=== PATIENT | female | born 1950 | race Caucasian/White ===

== ENCOUNTER → 2021-01-27 | Day surgery (SDC) | payer MEDICARE, OTHER ==
[~2021-01-27] MED LIST: ALLEGRA ALLERG180 M1 PO; COQ-10100 MG PO; COREG12.5 MG PO; KRILL OIL 3501 EACH PO; LIPITOR20 MG PO; PRINIVIL10 MG PO; TORSEMIDE10 MG PO; VIT D3 PO; [UNRECOGNIZED DRUG - OTHER] PO
[2021-01-27 10:55] LABS: HCT 38.9 % (37.0-47.0); HGB 12.4 g/dl (12.5-16.0); MCH 30.8 pg (25.0-31.0); MCHC 31.9 g/dL (32.0-36.0); MCV 96.5 fL (78.0-100.0); MPV 9.7 fL (6.0-9.5); RBC 4.03 M/uL (4.20-5.40); RDW 12.1 % (11.5-14.0); WBC 6.8 K/uL (4.0-10.5)
[2021-01-27 10:56] LABS: BILIRUBIN NEGATIVE (NEGATIVE); BLOOD NEGATIVE Ery/uL (NEGATIVE); CLARITY CLEAR (CLEAR); COLOR YELLOW (YELLOW); GLUCOSE (U) NORMAL (NORMAL); LEUKOCYTES NEGATIVE Leu/uL (NEGATIVE); NITRITE NEGATIVE (NEGATIVE); PROTEIN NEGATIVE (NEGATIVE); SPECIFIC GRAVITY 1.015 (1.001-1.030); UROBILINOGEN 0.2 mg/dL (0.2-1.0); pH 7.5 (5.0-9.0)
[2021-01-27 11:08] LABS: BUN/CREAT RATIO (CALC) 17.7 RATIO; CREATININE 0.79 mg/dL (0.51-0.95); POTASSIUM 4.3 mmol/L (3.5-5.1)
== END | disposition home or self-care (01) ==
LOC: FAS 09:40
PROVIDERS: Legal Medicine
DX: S52.572A Other intraarticular fracture of lower end of left radius, initial encounter for closed fracture (principal); I48.91 Unspecified atrial fibrillation; I10 Essential (primary) hypertension; E78.00 Pure hypercholesterolemia, unspecified; K21.9 Gastro-esophageal reflux disease without esophagitis; E78.5 Hyperlipidemia, unspecified; I42.9 Cardiomyopathy, unspecified; W19.XXXA Unspecified fall, initial encounter; Z88.0 Allergy status to penicillin; Z88.1 Allergy status to other antibiotic agents; Z88.2 Allergy status to sulfonamides
CPT/HCPCS: 36415; 71045; 73100; 80048; 81003; C1713; J1100; J2250; J2405; J2704; J2795; J3010; J7120

== ENCOUNTER 2021-07-24 19:44 | Emergency (ER) | payer MEDICARE, OTHER ==
[2021-07-24 20:42] LABS: BASOPHIL 0.3 % (0-2); EOSINOPHIL 2.2 % (0-7); HGB 12.4 g/dl (12.5-16.0); LYMPHOCYTE 23.8 % (15-48); MCH 30.5 pg (25.0-31.0); MCHC 31.8 g/dL (32.0-36.0); MCV 95.8 fL (78.0-100.0); MONOCYTE 6.8 % (0-12); MPV 9.9 fL (6.0-9.5); NEUTROPHIL 66.6 % (41-80); NRBC 0; PLT 267 K/uL (150-400); RBC 4.07 M/uL (4.20-5.40); RDW 12.7 % (11.5-14.0); WBC 9.5 K/uL (4.0-10.5)
[2021-07-24 21:01] LABS: ALBUMIN 3.8 g/dL (3.4-5.0); BILIRUBIN - TOTAL 0.4 mg/dL (0.2-1.0); BUN/CREAT RATIO (CALC) 18.3 RATIO; CREATININE 0.93 mg/dL (0.51-0.95); FT4 (FREE T4) 1.1 ng/dL (0.76-1.46); GLOBULIN (CALCULATION) 3.4 g/dL; POTASSIUM 4.1 mmol/L (3.5-5.1); TOTAL PROTEIN 7.2 g/dL (6.4-8.2)
== END 2021-07-24 23:45 | disposition home or self-care (01) ==
LOC: FER 19:44
PROVIDERS: Emergency Medicine
DX: I48.0 Paroxysmal atrial fibrillation (principal); Z88.2 Allergy status to sulfonamides; Z88.1 Allergy status to other antibiotic agents
CPT/HCPCS: 36415; 71045; 80053; 83735; 84439; 84443; 84484; 85025; 93005; J7030

== ENCOUNTER 2021-09-18 15:58 | Emergency (ER) | payer MEDICARE, OTHER ==
[2021-09-18 17:26] LABS: BASOPHIL 0.1 % (0-2); EOSINOPHIL 0.8 % (0-7); HCT 40.6 % (37.0-47.0); HGB 13.2 g/dl (12.5-16.0); LYMPHOCYTE 16.8 % (15-48); MCH 31.6 pg (25.0-31.0); MCHC 32.5 g/dL (32.0-36.0); MCV 97.1 fL (78.0-100.0); MONOCYTE 6.4 % (0-12); MPV 9.4 fL (6.0-9.5); NEUTROPHIL 75.5 % (41-80); NRBC 0; PLT 359 K/uL (150-400); RBC 4.18 M/uL (4.20-5.40); RDW 12.8 % (11.5-14.0); WBC 11.3 K/uL (4.0-10.5)
[2021-09-18 17:53] LABS: ALBUMIN 3.7 g/dL (3.4-5.0); BILIRUBIN - TOTAL 0.5 mg/dL (0.2-1.0); GLOBULIN (CALCULATION) 3.5 g/dL; POTASSIUM 3.9 mmol/L (3.5-5.1); TOTAL PROTEIN 7.2 g/dL (6.4-8.2)
[2021-09-18 18:03] LABS: PRO-BNP 562 pg/mL (<125)
[2021-09-18 18:05] LABS: CORONAVIRUS 2019 SARS-COV-2 NEGATIVE (NEGATIVE); INFLUENZA A NAA NEGATIVE (NEGATIVE)
== END 2021-09-18 19:29 | disposition home or self-care (01) ==
LOC: FER 15:58
PROVIDERS: Internal Medicine
DX: I50.9 Heart failure, unspecified (principal); I42.9 Cardiomyopathy, unspecified; Z88.2 Allergy status to sulfonamides; Z88.1 Allergy status to other antibiotic agents; Z20.822 Contact with and (suspected) exposure to COVID-19
CPT/HCPCS: 36415; 71045; 80053; 83880; 84145; 84443; 84484; 85025; 93005; U0002

== ENCOUNTER 2022-02-16 10:23 | Emergency (ER) | payer MEDICARE, OTHER ==
[2022-02-16 11:36] LABS: BASOPHIL 0.3 % (0-2); EOSINOPHIL 1.6 % (0-7); HCT 38.3 % (37.0-47.0); HGB 12.6 g/dl (12.5-16.0); LYMPHOCYTE 18.6 % (15-48); MCH 31.9 pg (25.0-31.0); MCHC 32.9 g/dL (32.0-36.0); MPV 9.5 fL (6.0-9.5); NEUTROPHIL 71.2 % (41-80); NRBC 0; PLT 262 K/uL (150-400); RBC 3.95 M/uL (4.20-5.40); RDW 11.9 % (11.5-14.0); WBC 6.1 K/uL (4.0-10.5)
[2022-02-16 11:53] LABS: ALBUMIN 3.9 g/dL (3.4-5.0); BILIRUBIN - TOTAL 0.6 mg/dL (0.2-1.0); BUN/CREAT RATIO (CALC) 20.7 RATIO; CREATININE 0.82 mg/dL (0.51-0.95); FT4 (FREE T4) 1.2 ng/dL (0.76-1.46); GLOBULIN (CALCULATION) 3.2 g/dL; MAGNESIUM 2.2 mg/dL (1.8-2.4); POTASSIUM 4.5 mmol/L (3.5-5.1); TOTAL PROTEIN 7.1 g/dL (6.4-8.2)
[2022-02-16] MEDS ORDERED: XANAX0.25 MG PO (13:01)
== END 2022-02-16 14:15 | disposition home or self-care (01) ==
LOC: FER 10:23
PROVIDERS: Emergency Medicine
DX: I48.0 Paroxysmal atrial fibrillation (principal); I10 Essential (primary) hypertension; Z88.6 Allergy status to analgesic agent; Z79.899 Other long term (current) drug therapy
CPT/HCPCS: 36415; 71045; 80053; 83735; 83880; 84439; 84443; 84484; 85025; 93005